=== PATIENT | male | born 1975 | race American Indian/Alaskan Native ===

== ENCOUNTER 2018-07-06 01:48 | Emergency (ER) | payer OTHER ==
--- NOTE | 2018-07-06 03:22 | XRay Report ---
PROCEDURE: XR SHOULDER 2+V LT TECHNIQUE: 3 views of the left shoulder obtained. HISTORY: felt pop out while asleep. shoulder Pain COMPARISONS: None FINDINGS: No acute fracture or dislocation. AC joint is intact. IMPRESSION: No acute fracture or dislocation.. This document is electronically signed by Geno Hurtado MD., July 06 2018 03:19:50 AM ET
[2018-07-06 04:08] VITALS: BP 168/100
--- NOTE | 2018-07-06 04:09 | Emergency Department Report ---
ED Upper Extremity Inj HPI - General Chief Complaint: Shoulder Injury Stated Complaint: SHOULDER INJURY Time Seen by Provider: 07/06/18 03:45 Source: patient Mode of arrival: Ambulatory Limitations: No Limitations - History of Present Illness Initial Comments: 42-year-old male presents to ED with suspected dislocated left shoulder. The patient states he has dislocated this shoulder multiple times in the past. States he felt it dislocate while he was sleeping. Patient states it reduced spontaneously prior to the x-ray being taken this morning. Complaint: Injury to:: left, shoulder -: During the night Other Injuries: none Place: home Improves With: none Worsens With: movement of extremity Context: other (previous dislocations) Associated Symptoms: denies other symptoms - Related Data Allergies Allergy/AdvReac Type Severity Reaction Status Date / Time No Known Allergies Allergy Verified 07/06/18 01:55 ED Review of Systems ROS: Stated complaint: SHOULDER INJURY Other details as noted in HPI Comment: All other systems reviewed and negative Musculoskeletal: as per HPI Neurological: denies: weakness, numbness, paresthesias ED Past Medical Hx - Past Medical History Previous Medical History?: Yes Additional medical history: dislocated shoulder - Surgical History Past Surgical History?: Yes Hx Appendectomy: Yes - Social History Smoking Status: Current Every Day Smoker Substance Use Type: None ED Physical Exam - General Limitations: No Limitations General appearance: alert, in no apparent distress - Head Head exam: Present: atraumatic, normocephalic - Eye Eye exam: Present: normal appearance - ENT ENT exam: Present: mucous membranes moist - Neck Neck exam: Present: normal inspection - Respiratory Respiratory exam: Present: normal lung sounds bilaterally. Absent: respiratory distress - Cardiovascular Cardiovascular Exam: Present: normal rhythm, tachycardia - GI/Abdominal GI/Abdominal exam: Present: soft. Absent: distended - Extremities Exam Extremities exam: Present: full ROM, other (no deformity noted to left shoulder) - Neurological Exam Neurological exam: Present: alert, oriented X3. Absent: motor sensory deficit - Psychiatric Psychiatric exam: Present: normal affect, normal mood - Skin Skin exam: Present: warm, dry, intact, normal color. Absent: rash ED Course Vital Signs 07/06/18 01:51 Temperature 98.3 F Pulse Rate 120 H Respiratory 20 Rate Blood Pressure 164/116 O2 Sat by Pulse 97 Oximetry ED Medical Decision Making - Radiology Data Radiology results: report reviewed, image reviewed - Differential Diagnosis dislocation, sprain Critical care attestation.: If time is entered above; I have spent that time in minutes in the direct care of this critically ill patient, excluding procedure time. ED Disposition Clinical Impression: Shoulder injury Disposition: TO HOME OR SELFCARE Is pt being admited?: No Condition: Stable Instructions: Rotator Cuff Injury (ED), Shoulder Dislocation (ED) Referrals: BRANDON SINGH MD [Staff Physician] - 3-5 Days Forms: Work/School Release Form(ED) Time of Disposition: 04:06
== END 2018-07-06 04:30 | disposition home or self-care (01) ==
LOC: ED 01:48
DX: S43.005A Unspecified dislocation of left shoulder joint, initial encounter (principal); F17.200 Nicotine dependence, unspecified, uncomplicated; Z90.49 Acquired absence of other specified parts of digestive tract; W18.39XA Other fall on same level, initial encounter; Y93.84 Activity, sleeping; Y92.89 Other specified places as the place of occurrence of the external cause; Y99.8 Other external cause status
CPT/HCPCS: 99283